=== PATIENT | male | born 1960 | race Caucasian/White ===

== ENCOUNTER → 2023-08-28 15:50 | Outpatient (REF) | payer OTHER, SELFPAY | LOC: RCS 15:50 | PROVIDERS: ATTENDING PHYSICIAN Internal Medicine Cardiovascular Disease; FAMILY PHYSICIAN Family Medicine | DX: I34.0 Nonrheumatic mitral (valve) insufficiency (principal) | CPT/HCPCS: 93306 ==

== ENCOUNTER → 2024-07-10 07:57 | Outpatient (REF) | payer OTHER, SELFPAY | LOC: RCS 07:57 | PROVIDERS: ATTENDING PHYSICIAN Internal Medicine Cardiovascular Disease; FAMILY PHYSICIAN Family Medicine | DX: I34.0 Nonrheumatic mitral (valve) insufficiency (principal) | CPT/HCPCS: 93306 ==

== ENCOUNTER 2024-08-12 10:31 | Day surgery (SDC) | payer OTHER, SELFPAY | END 2024-08-12 12:09 | disposition home or self-care (01) | LOC: CATH 10:31 | PROVIDERS: ATTENDING PHYSICIAN Internal Medicine Cardiovascular Disease; FAMILY PHYSICIAN Family Medicine | DX: I08.3 Combined rheumatic disorders of mitral, aortic and tricuspid valves (principal); Z85.828 Personal history of other malignant neoplasm of skin | CPT/HCPCS: 93312; 93320; 93325 ==

== ENCOUNTER 2024-09-23 06:21 | Day surgery (SDC) | payer OTHER, SELFPAY ==
--- NOTE | 2024-09-21 09:49 | CM ---
Met with and Mrs. Ruiz in [facility]. He states prior to admission he resides with his spouse in a two story home with two steps to enter. He states he has a full flight of steps to get to bedroom/full bathroom. He states he has a powder room
on the first floor. He states prior to admission he was independent with ambulation and adls. He states he does not have any DME in the home. He states he has a prescription plan. His spouse states she will be home to assist in his care if
needed. The discharge plan is to return home with his spouse and a home visit by the Transitional Care Nurse when medically stable.
We reviewed pre-op and post-op routines. We reviewed the shower instructions. He has the soap, written instructions and the Cardiothoracic Surgery Educational Booklet. We also reviewed restrictions including sternal precautions, (if he goes for
SAVR) and driving instructions. We discussed a home visit by the Transitional Care Nurse. He is agreeable to a home visit. The plan is for MVR on Monday, October 16
[2024-09-23] VITALS (15 sets, daily range): BP systolic 109–143; BP diastolic 69–85; BMI 25.3
[2024-09-23] MEDS: LOW STRENGTH ASPIRIN 324 MG PO (07:14)
[2024-09-23] MEDS: NSS 240 ML IV (09:04)
--- NOTE | 2024-09-23 16:09 | ITS.CL.CATH ---
Drying Machine Operator - Catheterization
Cardiac Catheterization
Procedure Report:
LEFT AND RIGHT HEART CATHETERIZATION
Date of Procedure: September 23, 2024
Referring: Zeke Viveros MD
PROCEDURES:
1. Left heart catheterization, coronary angiogram.
2. Right heart catheterization.
3. Moderate sedation
INDICATION: Preoperative for mitral valve surgery
ACCESS: 1. Right radial artery, 6 Vincentian sheath, under ultrasound guidance.
2. Right common femoral vein, 6 Vincentian sheath, under ultrasound guidance. We attempted the right brachial venous access site under ultrasound however we could not successfully advance the wire.
Ultrasound was utilized for vascular access. The radial artery was visualized under ultrasound, and the vessel was patent and pulsatile. An image was stored permanently in the patient's medical record. Under direct ultrasound guidance, a 6 Vincentian
sheath was inserted into the artery using a micropuncture kit through a modified Seldinger technique.
HEMODYNAMICS : (mmHg)
RA (m) : 11
RV (s/d,m) : 33/8, 14
PA (s/d, m) : 29/16, 22
PCWP (m) : 18
PA saturation: 73.0% on room air
AO saturation: 95.7% on room air
RA saturation: 71.8% on room air
Cardiac Output : 4.96 L/min
Cardiac Index : 2.5 L/min/m-2
Systemic vascular resistance: 1178 dsc^(-5)
Pulmonary vascular resistance: 0.81
AO (s/d) : 101/66
LV (s/d) : 106/9
LVEDP : 28
CORONARY FINDINGS
DOMINANCE: Right
LEFT MAIN: The left main artery is a large-caliber vessel which gives rise to the left anterior descending artery and the left circumflex artery. Normal coronary artery
LEFT ANTERIOR DESCENDING: The left into descending artery is a medium to large caliber vessel which gives rise to multiple small caliber diagonal branches as it courses to the anterior interventricular groove and wraps around the apex. Normal
coronary artery.
CIRCUMFLEX: The left circumflex artery is a small caliber vessel which gives rise to 1 major obtuse marginal branch. There is minimal luminal irregularities.
RIGHT CORONARY ARTERY: The right coronary artery is a large-caliber, dominant vessel which is to the right posterior descending artery and the right posterolateral system. Normal coronary artery.
SEDATION: 47 minutes of procedural sedation was utilized. An independent medical language specialist was present to assist with and help manage the patient's level of consciousness and physiologic status.
RADIATION SUMMARY: Fluoro Time (min): 3.3, Dose (mGy): 139.0, DAP (Gy.cm2) : 10.07
Closure Device: 1. Vascular band over right radial artery. Manual pressure was held over the right common femoral venous access site with successful hemostasis.
CONCLUSIONS
1. No obstructive coronary artery disease.
2. Mildly elevated right and left-sided filling pressures with normal cardiac output.
RECOMMENDATIONS
1. Proceed with planned mitral surgical intervention by Dr. Zeke Viveros.
2. Continued optimization of cardiovascular risk factors.
3. Wean radial band per protocol.
Copy to: Zeke Viveros MD
Geraldine Tang MD, [facility], [facility]
== END 2024-09-23 12:05 | disposition home or self-care (01) ==
LOC: CATH 06:21
PROVIDERS: ATTENDING PHYSICIAN Internal Medicine Interventional Cardiology; FAMILY PHYSICIAN Family Medicine; OTHER PHYSICIAN Internal Medicine Cardiovascular Disease
DX: Z01.810 Encounter for preprocedural cardiovascular examination (principal); I08.3 Combined rheumatic disorders of mitral, aortic and tricuspid valves; R03.0 Elevated blood-pressure reading, without diagnosis of hypertension
CPT/HCPCS: 99152; 99153; 93460; C1894; Q9967

== ENCOUNTER → 2024-10-02 10:56 | Outpatient (REF) | payer OTHER, SELFPAY | LOC: RAD 10:56 | PROVIDERS: ATTENDING PHYSICIAN Thoracic Surgery (Cardiothoracic Vascular Surgery); FAMILY PHYSICIAN Family Medicine | DX: I34.0 Nonrheumatic mitral (valve) insufficiency (principal); Z01.810 Encounter for preprocedural cardiovascular examination | CPT/HCPCS: 71275; 74174; Q9967 ==

== ENCOUNTER 2024-10-16 04:57 | Inpatient (IN) | payer OTHER, SELFPAY ==
[2024-09-21 08:23] VITALS: BMI 24.8
[2024-09-21 09:01] LABS: % Basophils 1.1 % (0-2); % Eosinophils 2.6 % (0-6); % Immature Granulocytes 0.2 % (0-0.5); % Lymphocytes 17.2 % (20.5-51.1); % Monocytes 8.4 % (1.7-9.3); % Neutrophils 70.5 % (42.2-75.2); Absolute Basophils 0.1 10^3/uL (0-0.2); Absolute Eosinophils 0.1 10^3/uL (0-0.7); Absolute Lymphocytes 0.8 10^3/uL (1.2-3.4); Absolute Monocytes 0.4 10^3/uL (0.1-0.6); Absolute Neutrophils 3.3 10^3/uL (1.4-6.5); Hematocrit 44.6 % (39.0-52.0); Hemoglobin 15.7 g/dL (13.0-18.0); Mean Corp Hgb Conc. 35.2 g/dL (33.0-37.0); Mean Corpuscular Hgb 30.7 pg (27.0-31.0); Mean Corpuscular Volume 87.3 fL (80.0-94.0); Mean Platelet Volume 9.9 fL (7.4-10.4); Nucleated Red Blood Cells % 0 % (-); Platelet Count 187 10^3/uL (130-400); Red Blood Cell Count 5.11 10^6/uL (4.70-6.10); Red Cell Dist. Width 12.8 % (11.5-14.5); White Blood Cell Count 4.7 10^3/uL (4.8-10.8)
[2024-09-21 09:06] LABS: INR 1.01; PT 13.6 Sec (11.4-14.6)
[2024-09-21 09:08] LABS: APTT 29.7 Sec (23.4-35.0)
[2024-09-21 09:13] LABS: Urine Albumin Negative (Neg - Trace); Urine Bilirubin Negative (Negative); Urine Character Clear (Clear); Urine Color Yellow; Urine Glucose Negative (Negative); Urine Ketone Negative (Negative); Urine Leukocyte Negative (Negative); Urine Nitrite Negative (Negative); Urine Occult Blood Negative (Negative); Urine Specific Gravity 1.015 (<1.030); Urine Urobilinogen Negative (Neg - 1+)
[2024-09-21 09:16] LABS: ALT (SGPT) 15 U/L (0-50); AST (SGOT) 17 U/L (17-59); Albumin 3.8 g/dl (3.5-5.0); Alkaline Phosphatase 55 U/L (38-126); Blood Urea Nitrogen 20 mg/dl (9-20); Calcium 9.4 mg/dl (8.4-10.2); Carbon Dioxide 30 mmol/L (22-30); Chloride 104 mmol/L (98-107); Direct Bilirubin 0.1 mg/dl (0.0-0.4); Estimated Creatinine Clearance 91 ml/min; Glucose 98 mg/dl (70-99); Potassium 5.3 mmol/L (3.5-5.1); Sodium 137 mmol/L (135-145); Total Bilirubin 0.8 mg/dl (0.2-1.3); Total Protein 6.1 g/dl (6.3-8.2); eGFR > 60.00
[2024-09-21 09:40] LABS: Glycohemoglobin (HgbA1c) 5.2 % (4.0-5.6)
--- NOTE | 2024-09-24 15:22 | CM ---
Met with and Mrs. Ruiz in [facility]. He states prior to admission he resides with his spouse in a two story home with two steps to enter. He states he has a full flight of steps to get to bedroom/full bathroom. He states he has a powder room on
the first floor. He states prior to admission he was independent with ambulation and adls. He states he does not have any DME in the home. He states he has a prescription plan. The discharge plan is to return home with his spouse and a home visit
by the Transitional Care Nurse when medically stable.
We reviewed pre-op and post-op routines. We reviewed the shower instructions. He has the soap, written instructions and the Cardiothoracic Surgery Educational Booklet. We also reviewed the restrictions including sternal precautions and driving
restrictions. We discussed a home visit by the Transitional Care Nurse. He is agreeable to home visit. The plan is for Mitral Valve Repair on Wednesday, October 16, 2024.
[2024-10-16] VITALS (15 sets, daily range): BP systolic 80–148; BP diastolic 55–92; BMI 24.6
[2024-10-16] MEDS: MAGNESIUM OXIDE 500 MG PO (05:20)
[2024-10-16] MEDS: PROTONIX 40 MG PO (05:20)
[2024-10-16] MEDS: LOPRESSOR 25 MG PO (05:20)
[2024-10-16] MEDS: BACTROBAN 2% OINTMENT 1 APPLIC NASAL ×2 (05:24→20:00)
--- NOTE | 2024-10-16 05:32 | PTCARENOTE ---
Confirmed 2 CHG baths. CHG cloth bath performed. Admission questions asked. Medications given. Home med list reviewed. Labs drawn and patient clipped in surgical fashion. Awaiting CVOR.
--- NOTE | 2024-10-16 06:11 | W.CVOR.SURPR ---
CVOR Surgeon Immed Pre Op
-
I have examined this patient prior to performance of the scheduled procedure.
The patient's condition is unchanged from the time of the dictated/written History and
Physical and the patient is able to undergo the scheduled procedure.
HP MV repair +/- REJI Clip
[2024-10-16 07:27] LABS: Urine Albumin Negative (Neg - Trace); Urine Bilirubin Negative (Negative); Urine Character Clear (Clear); Urine Color Yellow; Urine Glucose Negative (Negative); Urine Ketone Negative (Negative); Urine Leukocyte Negative (Negative); Urine Nitrite Negative (Negative); Urine Occult Blood 2+ (Negative); Urine Urobilinogen Negative (Neg - 1+); Urine pH 6.5 (5.0-9.0)
[2024-10-16 07:35] LABS: ACT+ - POC 115 Seconds (82-134)
[2024-10-16 08:12] LABS: Urine Mucus Few; Urine Squamous Cell 0-2 /LPF (Few)
[2024-10-16 08:14] LABS: Urine Bacteria Few (Negative); Urine White Cell 0-2 /HPF (0-5)
[2024-10-16 08:37] LABS: ACT+ - POC 780 Seconds (82-134)
[2024-10-16 09:03] LABS: ACT+ - POC 563 Seconds (82-134)
--- NOTE | 2024-10-16 09:22 | CM ---
CM following for DC planning needs.
Pt. in OR today for planned CT Surgery.
Reviewed initial assessment. Pt. resides in a private, 2 [facility] w/ 2 [facility]. Functionally, patient is indep. w/ ADLs, mobility without any assisted device.
Antic. DC plan is for home with CT Transitional Care RN.
CM to follow.
[2024-10-16 09:32] LABS: ACT+ - POC 489 Seconds (82-134)
[2024-10-16 10:00] LABS: ACT+ - POC 533 Seconds (82-134)
[2024-10-16 10:20] LABS: B.E. - POC -0.8 mmol/L; Glucose - POC 205 mg/dl (70-99); HCO3 - POC 24 mmol/L (21-28); Hematocrit - POC 36 % PCV (42-52); Hemodilution- POC Yes; Hemoglobin Calculated - POC 12.4; Ionized Calcium - POC 1.06 mmol/L (1.15-1.33); Lactate - POC 1.46 mmol/L (0.36-0.75); O2 Saturation %Calculated-POC 99.9 % (94-98); PCO2 - POC 40 mmHg (35-48); PO2 - POC 283 mmHg (83-108); POC Comment WARM; Potassium - POC 5.1 mmol/L (3.5-5.1); Sodium - POC 139 mmol/L (136-145); Specimen Type - POC Arterial; pH - POC 7.39 (7.35-7.45)
[2024-10-16 10:25] LABS: ACT+ - POC 137 Seconds (82-134)
[2024-10-16 10:37] LABS: B.E. - POC -4.5 mmol/L; Glucose - POC 73 mg/dl (70-99); HCO3 - POC 21 mmol/L (21-28); Hematocrit - POC 33 % PCV (42-52); Hemodilution- POC Yes; Hemoglobin Calculated - POC 11.3; Ionized Calcium - POC 1.31 mmol/L (1.15-1.33); Lactate - POC 2.48 mmol/L (0.36-0.75); O2 Saturation %Calculated-POC 98.4 % (94-98); PCO2 - POC 39 mmHg (35-48); PO2 - POC 120 mmHg (83-108); POC Comment POST; Potassium - POC 4.1 mmol/L (3.5-5.1); Sodium - POC 142 mmol/L (136-145); Specimen Type - POC Arterial; pH - POC 7.34 (7.35-7.45)
--- NOTE | 2024-10-16 10:49 | W.PN.CT.SURG ---
CT Surgery Operative Note
-
CARDIAC SURGERY OPERATIVE REPORT
Preoperative Diagnosis: Myxomatous mitral valve degeneration, severe insufficiency
Postoperative Diagnosis: Same
Procedure(s) Performed:
1. Right mini thoracotomy with right femoral artery and vein cannulation under ILENE guidance
2. Radical mitral valve repair (2 pairs of CV 4 Macy-Nima cords placed to P2 and P3, 38 mm band annuloplasty)
3. Placement temporary ventricular pacing wires
4. Trans esophageal echocardiography
5. Left atrial appendage exclusion, 35 mm device
Date of Surgery: 10/16/2024
Comorbidities:
1. 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
2. Migraines
3. Skin cancer
4. Hypertension
5. Vertigo
6. Chronic diastolic heart failure with volume overload, cardiac index during surgery 1.2 before valve repair and improved significant to 1.9 after valve repair with without inotropic support
Attending Surgeon: Zeke Viveros MD, MS
Assistants: Zeke Sam PA-C (present and necessary for retraction, suctioning, exposure, suture management, wound closure, etc. under my direction)
Anesthesiology: Donny Santiago MD and Que Katz CRNA
Scrub and Circulating RNs: Josr Castillo RN, Alexa Baez RN
Manager Contact: Aristides Wilkinson CCP
Anesthesia: GETA
EBL: per perfusion records
Products: None
CPB Time: 101 minutes
Aortic Cross Clamp Time: 76 minutes
Indication(s) for Procedures: This is a 64-year-old male with known mitral valve insufficiency has become progressively worse. He has myxomatous mitral valve degeneration with prolapse and flail of the P2 and P3 segment, dilated annulus, and severe
insufficiency. From a symptomatology standpoint he describes no significant shortness of breath on exertion and feels that his clinical status has not really changed over the last year. However given his young age, relatively fit health, repair
ability of his valve in my hands, he met class IIa indication for surgical intervention.
Mitral Valve Description: Thickened both anterior and posterior leaflets, there was a flail segment at the P3 scallop with multiple torn cords and prolapsing of both the P2 and P3 segments. The valve was dilated mostly towards the P2 P3 portion of
the annulus. The severity of his MR was severe.
Implants:
1. 38 mm Stack physio flex band annuloplasty, SN [id number]
2. 2 pairs of CV 4 Macy-Nima cords
3. 35mm left atrial appendage clip, serial #[id number]
Specimen:
1. None
Findings: His left ventricular ejection fraction preoperatively was preserved at 60% with no significant regional wall motion abnormalities. However his cardiac index after insertion of the [place] was approximately 1.2. After surgery his EF remained
the same at 60% with no new regional wall motion abnormalities. His mitral valve was myxomatous with significant prolapsing of P2 into P3 as well as multiple torn cords at the P2 P3 interface. These free cords were then resected and a set of cords
were placed at the posterior medial papillary muscle head. These cords were anchored to the P2 P3 segment and a total of 12 nonpledgeted 2 Ethibond sutures were placed circumferentially from trigone to trigone securing a [address] with
core knots dynamic inflation of his LV yielded a mean pressure of approximately 70 with good coaptation of the valve however there was some prolapsing up of the P2 P3 segment and so the cords were tied in order to promote a more
posterior/ventricular posterior leaflet. His left atrial appendage was clipped with a 35 mm device across the transverse sinus. After coming off cardiopulmonary bypass, there was no residual mitral valve insufficiency, there was normal excursion
of both his anterior and posterior leaflets, the mean gradient across the valve was 1 mmHg, there was no systolic anterior motion of the leaflets. His left atrial appendage was adequately clipped. His cardiac index had improved to 1.8-1.9 without
inotropic support. He was in sinus rhythm and did not require any pacing. He did not require any blood products..
Description of Procedure: The patient was brought to the operating room and placed supine in the table with their right side bumped up and right arm down. Arterial and central access was performed by anesthesiology. The patient was prepped from chin
to toes in the typical sterile fashion. Trans esophageal evaluation of cardiac function and all valvular structures was conducted. Before commencing, a time out was performed by all members of the team. All were in agreement with the procedure and
laterality and I proceeded. A small right groin incision was made to expose the common femoral artery and vein. A total of 50,000 units of heparin was given. A 5-6 cm right lateral thoracotomy was performed over the 4th intercostal space verified by
visualization of the hilum. The common femoral artery and vein were cannulated under transesophageal guidance using open Seldinger technique. The arterial line was verified to have an appropriate bounce and pressure correlating with testing. Once
the ACT was above 400, retrograde autologous priming was done and we commenced cardiopulmonary bypass. Target core temperature was 34�C.
Carbon dioxide was used to flood the field. The course of the phrenic nerve was identified to prevent injury. The pericardium was opened and two stay sutures were placed to facilitate a ``pericardial table.�� The oblique sinus was developed followed
by the inter atrial groove. An antegrade root vent was inserted and secured with a pursestring suture. The pump flow and mean arterial pressure were lowered and an aortic cross clamp was applied to the ascending aorta. A total of 1.2L initial dose
of Antegrade cardioplegia was delivered. We had rapid electro myocardial quiescence at 250-280 cc of cardioplegia. The ventricle was monitored for distension by echocardiogram during this time. The left atrium was incised and enlarged. A left atrial
lift retractor was placed. The mitral valve was inspected. The mitral valve was repaired as described above. At this point with the aid of a 5 mm scope, the left atrial appendage was clipped across the transverse sinus with a 35 mm device. I then
looked in the side the left atrium and verified that the appendage was fully occluded which it was. The left atriotomy was closed with 3-0 prolene in a running fashion leaving a ventricular vent in place to de-air. After filling the heart, the vent
was removed and the prolene was secured with a corknot. Unipolar ventricular pacing wire was placed on the base of the right ventricle. The patient was placed into Trendelenburg position and pump flows were lowered. The clamp was slowly removed
with the root vent turned on. De-airing maneuvers were performed. We started to rewarm with a target of 36.5�C.
As the heart recovered, the mitral valve and ventricular function were assessed under transesophageal echocardiogram. The LV vent and root vents were removed. Once weaning parameters were satisfactory, cardiopulmonary bypass flow was lowered until
we were off cardiopulmonary bypass the mitral valve was inspected again. All surgical sites were inspected for hemostasis and appeared appropriate. The lines were clamped and the arterial was relocated to the venous cannula to give back volume. A
test dose of protamine was delivered and patient was monitored for any adverse reactions followed by complete protamine dosing. The femoral vessels were decannulated and repaired as indicated. The pericardium was approximated with 2-0 ethibond
sutures secured with corknots. One 19F Pantera drain remained in the pleural space and threaded into the pericardium. There was an excellent palpable pulse distal to the STAMP PAD FINISHER cannulation site. Local analgesia was injected to the thoracotomy. The
incision was closed in layers in a running fashion.
All instrument, sponge, and needle counts were confirmed to be correct x 2 at the end of the operation. The patient was transferred to the cardiac intensive care unit in critical but stable condition.
I, Dr. Zeke Viveros, was present, scrubbed for, and performed all critical elements of this procedure.
Zeke Viveros MD, MS
Cardiothoracic Surgeon
[facility]
This dictation was created using the [employer] dictation system. Please excuse any grammatical, typographical, or 'sound alike' errors
[2024-10-16 11:05] LABS: Glucose - Point of Care 65 mg/dl (70-99)
[2024-10-16] MEDS: DEXTROSE 50% SYRINGE 12.5 GRAMS IV (11:05)
[2024-10-16 11:16] LABS: B.E. -2.7 mmol/L; HCO3 23.7 mmol/L (21-28); Ionized Calcium 1.26 mMOL/L (1.15-1.33); O2 Saturation % 98.9 % (94-98); PCO2 46 mmHg (35-48); PO2 104 mmHg (83-108); Potassium 3.7 mMOL/L (3.5-5.1); Sodium 135 mMOL/L (136-145); pH 7.32 (7.35-7.45)
[2024-10-16 11:19] LABS: Glucose - Point of Care 106 mg/dl (70-99)
[2024-10-16 11:19] LABS: Mixed Venous O2 Saturation 82.6 %
[2024-10-16 11:21] LABS: B.E. - POC -1.8 mmol/L; Glucose - POC 100 mg/dl (70-99); HCO3 - POC 23 mmol/L (21-28); Hematocrit - POC 35 % PCV (42-52); Hemodilution- POC No; Hemoglobin Calculated - POC 11.9; Ionized Calcium - POC 1.18 mmol/L (1.15-1.33); Lactate - POC < 0.30 mmol/L (0.36-0.75); O2 Saturation %Calculated-POC 99.9 % (94-98); PCO2 - POC 40 mmHg (35-48); PO2 - POC 282 mmHg (83-108); POC Comment PRE; Potassium - POC 4.2 mmol/L (3.5-5.1); Sodium - POC 141 mmol/L (136-145); Specimen Type - POC Arterial; pH - POC 7.37 (7.35-7.45)
[2024-10-16 11:23] LABS: Hemoglobin 13.7 g/dL (13.0-18.0); Platelet Count 152 10^3/uL (130-400)
[2024-10-16] MEDS: ANCEF 10 IV ×2 (11:28)
[2024-10-16 11:29] LABS: INR 1.34; PT 16.8 Sec (11.4-14.6)
[2024-10-16 11:30] LABS: APTT 29.3 Sec (23.4-35.0); Blood Urea Nitrogen 18 mg/dl (9-20); Estimated Creatinine Clearance 88 ml/min; Glucose 67 mg/dl (70-99)
--- NOTE | 2024-10-16 11:46 | PTCARENOTE ---
Patient received from CVOR at 1100; Sedated and intubated; NSR-SB per tele monitor. VSS; Epicardial V wires present with temporary pacemaker settings VVI 50/10/0.8; +2 DP and radial pulses present; Lungs diminished; ETT size 8 positioned and secured
at 23 cm right lip; Ventilator settings SIMV 12/500/5/5 FiO2 40%; CTx1 to -20 cm wall suction draining very minimal drainage - no air leak, tidaling, or crepitus noted; Hypoactive BS; Mendoza catheter in place draining clear, yellow urine; all
surgical sites, approximated, and SEE SUPERVISOR. Left radial A-line in place, Romy Sherrie floated to 48 cm in RIJ Cordis - all lines zeroed and leveled; #18 PIV present in right hand; precedex, and levo infusing - pt hypoglycemic 12.5g of dextrose given per
protocol.
CO: 4.09
CI: 2.05
SVR: 1075
[2024-10-16 11:59] LABS: Glucose - Point of Care 106 mg/dl (70-99)
[2024-10-16] MEDS: KCL 50 IV (12:14)
[2024-10-16] MEDS: NSS 500 IV (12:14)
[2024-10-16] MEDS: NEURONTIN PO (12:15)
[2024-10-16] MEDS: LR 250 ML IV ×2 (12:22→21:27)
--- NOTE | 2024-10-16 12:36 | W.PN.UPDATE ---
Update Note
Progress Note Update
64 year old male electively admitted 10/16/24 for mitral repair due to myxomatous mitral valve degeneration, severe insufficiency
IV fluids: 1000
U.O.:� 250
Blood:� none
Wires:� 2 V-wires
Drips: Levophed @ 2, Precedex, Insulin
�
NEURO: sedated, pupils +2mm B/L
RESP: #8OT @23cm> 550/40%/14/5. R pleural (0cc on arrival) chest tubes to -20cm suction. Sanguineous drainage in tubing, no air leak, no crepitus
CV: RRR +S1, S2, no S3, no�rub, no murmur. Dermabond t oright mini anterior thoracotomy. RIJ w/[place] locked @ 48cm. PA 32/19; CVP 15; C.O 4.06/CI 2.03
ABD: round, soft, no BS
EXT: no edema, +2/4 DP pulses B/L, right femoral cannulation site w/Dermabond intact, no erythema, right inguinal hernia noted, reducible; left radial A-line intact
: Mendoza with clear yellow urine
�
A/P: POD #0 s/p [facility] radical mitral valve repair (2 pairs of CV 4 [place]-Nima cords placed to P2 and P3, 38 mm band annuloplasty), Left atrial appendage exclusion, 35 mm device
ILENE: EF�60%, MV 5/1 mmHg, no MR
- wean and extubate
- will need instruction regarding antibiotic prophylaxis for dental and invasive procedures
- F/U TTE prior to DC (ordered for 10/19)
- ASA for MV repair
�
--- NOTE | 2024-10-16 12:41 | W.PN.CARDCBS ---
Addendum entered and electronically signed by Rebel Monet MD 10/16/24 13:25:
I saw and examined the patient.
The Vaccine Manager's note was reviewed and I agree with the note.
Comment:
GEN: No distress, intubated
HEENT: supple, anicteric, mmm, ET tube
LUNGS: CTA, no wheezes/rales
CV: Reg, S1/S2, no murmur
ABD: soft, BS+, NT/ND
EXT: No edema
NEURO: Gross non-focal
SKIN: No rash
PLan:
Overall doing well status post mitral valve repair/left A2 appendage clip. EKG with some mild diffuse ST abnormalities consistent with possible pericarditis.
He does have some bradycardia and continue to follow.
Remains on low-dose Levophed.
Wean to extubate.
Original Note:
Today's Communication / Plan
-
continue post op care
Impression / Plan
-
Primary Product Safety Engineer: Dr. Monet
Assessment:
Severe MR with flail cord and prolapse of posterior leaflet at P2 into P3 s/p radical MV repair, REJI clip 10/16/24
Nonobstructive CAD by cath 09/23/24
History of migraines
Post op hypoglycemia, improved
ECHO 07/10/24: EF 61%, stage II diastolic dysfunction, mildly dilated RA, MAC, severe MR with systolic flow reversal in pulmonary veins with MR present, bileaflet mitral valve prolapse with likely torn cord, mild TR
Plan:
-s/p radical MV repair, REJI clip 10/16/24
-intubated. beginning to wean sedation and wake up
-was hypoglycemic upon arrival to floor now improved
-levo just stopped. CI 2.05
-SB on tele. possible pericarditis by post op EKG, follow
-hgb 13.7. continue asa 81mg daily
-continue post op care
-d/w nursing, CT surgery
Progress Note - Product Safety Engineer
Subjective
Date of Service: October 16, 2024
intubated. beginning to wake up
Objective
Labs:
10/16/24 11:01
Labs
Hgb 13.7 g/dL (13.0-18.0) 10/16/24 11:01
Hct 38.0 % (39.0-52.0) L 10/16/24 11:01
Plt Count 152 10^3/uL (130-400) 10/16/24 11:01
PT 16.8 Sec (11.4-14.6) H 10/16/24 11:01
INR 1.34 10/16/24 11:01
APTT 29.3 Sec (23.4-35.0) 10/16/24 11:01
Sodium 137 mmol/L (135-145) 09/21/24 08:43
Potassium 5.3 mmol/L (3.5-5.1) H 09/21/24 08:43
BUN 18 mg/dl (9-20) 10/16/24 11:01
Creatinine 0.9 mg/dL (0.7-1.3) 10/16/24 11:01
Glucose 67 mg/dl (70-99) L 10/16/24 11:01
Vital Signs and I&O:
Vital Signs
Temp Pulse Resp BP Pulse Ox
96.7 F L 55 12 98
10/16/24 12:00 10/16/24 12:00 10/16/24 12:00 10/16/24 12:00 10/16/24 12:00
Vital Signs
Temp Pulse Resp BP Pulse Ox
96.7 F L 55 12 88/62 98
10/16/24 12:00 10/16/24 12:00 10/16/24 12:00 10/16/24 12:00 10/16/24 12:00
Intake & Output
10/14/24 10/15/24 10/16/24 10/17/24
07:59 07:59 07:59 07:59
Intake Total 57.3 / 57.3
Output Total 110 / 110
Balance -52.7 / -52.7
Physical Exam
Physical Exam
GEN: No distress, intubated, sedated. on priti hugger
HEENT: supple, mmm
LUNGS: CTA B/L, no wheezes
CV: Reg and silvestre, S1/S2, no murmur
EXT: No cyanosis, clubbing, edema
NEURO: Gross non-focal
SKIN: Warm, pink, dry. No rash. CTs in place.
[2024-10-16 12:55] LABS: Glucose - Point of Care 143 mg/dl (70-99)
--- NOTE | 2024-10-16 13:46 | CON.INTV ---
Consultation
Consultation Request
Date/Time Consultation Requested: 10/16/2024-2 PM
Date/Time Consultation Performed: 10/16/2024- PM
Requesting Provider: cardiothoracic surgery
Performing Provider: Dr. Molina
Reason for Consultation: postoperative ventilator/critical care management
Medical History
-
Chief Complaint: mitral valve disease
History of Present Illness:
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
into P3 who underwent radical mitral valve repair-machine set up consulted for postoperative ventilator/critical care management 10/16/2024.Patient is sedated on the ventilator and review of systems was unobtainable. Operative records were reviewed.
Pressor requirements were reviewed as well as chest tube output and ventilator settings.
Past Medical History
Past Medical History: None ( Hypertension. Vertigo. Skin cancer. Migraines. Severe mitral valve insufficiency/myxomatous degeneration, type II pathology status post mitral valve repair 10/16/2024. Chronic diastolic heart failure. Hernia repair.
[place] teeth.)
Social History
Tobacco: Non-smoker
Alcohol: None
Drug: None
Personal:
Living: With Family
Occupational Exposures: No known asbestos exposure
Environmental Exposures: no known tuberculosis exposure
Family History
Family History: Reviewed & Not Pertinent
Allergies / Home Medications
Allergies
Allergy/AdvReac Type Severity Reaction Status Date / Time
No Known Allergies Allergy Verified 09/23/24 07:30
Home Medications
�Medication �Instructions �Recorded �Confirmed �Last Taken �Type
azhmyhz-wofvgnldzjfya-pqlniatj 250 1 - 2 tab PO PRN PRN Migraine, 09/18/24 10/16/24 Unknown History
mg-250 mg-65 mg tablet (Excedrin Headache
Migraine)
multivitamin 1 tab PO DAILY 09/18/24 10/16/24 10/09/24 18:00 History
cetirizine 10 mg tablet (Zyrtec) 10 mg PO DAILY 09/23/24 10/16/24 09/25/24 History
Review of Systems
-
Unable to Obtain full review of systems at this time due to: Other ( per HPI)
Vitals / Labs / Diagnostic Testing
Vital Signs
Temp Pulse Resp BP Pulse Ox
97.8 F 57 12 93/67 98
10/16/24 13:00 10/16/24 12:59 10/16/24 13:00 10/16/24 13:00 10/16/24 13:00
Lab Data
10/16/24 11:01
Laboratory Results
10/16/24
11:01
PT 16.8 H
INR 1.34
APTT 29.3
pH 7.32 L
pCO2 46
pO2 104
HCO3 23.7
O2 Delivery Level
Diagnostic Testing:
Physical Exam
-
Exam:
well-nourished and well-developed in no apparent distress
HEENT-atraumatic, normocephalic, oral tracheal intubation
Heart-regular rate and rhythm-no murmurs, rubs or gallops
Chest-clear to auscultation, no wheezes, crackles
Abdomen soft nondistended
Extremities-no cyanosis, clubbing, edema and good peripheral pulses
Integument-intact, no rashes, lesions or ecchymosis
Neurologically not alert, not oriented, not moving any of his extremities sedated on a ventilator
Assessment
-
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
into P3 who underwent radical mitral valve repair-machine set up consulted for postoperative ventilator/critical care management 10/16/2024.
Severe mitral valve insufficiency/myxomatous degeneration, type II pathology with flail cord and prolapse of posterior leaflet at P2-P3
Status post radical mitral valve repair, right minithoracotomy-Dr. Viveros-10/16/2024
Conditions present prior to admission:
Hypertension.
Vertigo.
Skin cancer.
Migraines.
Severe mitral valve insufficiency/myxomatous degeneration, type II pathology status post mitral valve repair 10/16/2024.
Chronic diastolic heart failure.
Hernia repair. [place] teeth.
Plan
Ventilator settings reviewed
FiO2 will be weaned
Minute ventilation will be adjusted
Arterial blood gases will be monitored
Spontaneous breathing trial will be attempted with hopeful extubation after anesthesia/sedation wear off
Pulmonary artery catheter parameters will be followed
Pressors/antihypertensive/inotropes/diuretics will be provided as needed
Monitor chest tube output
Monitor hemoglobin
Monitor platelet count and coags
Transfuse blood product if needed
CT surgery following chest tubes
Monitor blood sugar
Insulin drip per protocol
Aspiration precautions
VAP prevention protocol
DVT prophylaxis
Early nutrition
Early mobilization
Critical care statement: A total of 50 minutes of critical care time was provided for this patient today. This includes management of ventilator, spontaneous breathing trial, arterial blood gases, pressors, of unstable vital signs, evaluation of the
patient at bedside, reviewing the patient's pertinent medical records including radiographs, microbiology, laboratory evaluations, and discussion with primary team and critical care nursing.
Diagnostic data:
Chest x-ray 10/16/2024-lungs are clear, postoperative changes
CT chest abdomen and pelvis 10/02/24-mildly calcified mitral valve, mild prostate enlargement, right sided hydrocele
Cardiac catheterization 09/23/24-no obstructive coronary artery disease, mildly elevated right and left-sided
Transesophageal echocardiogram 10/16/2024-EF 55%, no regional wall motion abnormalities, stage II diastolic dysfunction, severe mitral regurgitation
Data Reviewed
-
EKG: Report reviewed by me
Radiology: Report reviewed by me
CT Scan: Report reviewed by me
Medical Tests (Nuc Med, Echo etc): Report reviewed by me
Labs: Labs reviewed by me
Old Records: Requested
Critical Care Time (in minutes): 50
[2024-10-16 13:55] LABS: Glucose - Point of Care 163 mg/dl (70-99)
[2024-10-16 14:21] LABS: B.E. -3.3 mmol/L; HCO3 22.1 mmol/L (21-28); O2 Saturation % 99.7 % (94-98); PCO2 40 mmHg (35-48); PO2 176 mmHg (83-108); pH 7.35 (7.35-7.45)
[2024-10-16] MEDS: TYLENOL PO (14:29)
--- NOTE | 2024-10-16 14:30 | PTCARENOTE ---
pt placed on CPAP @ 1345, ABG results reviewed w/ CTPA, pt extubated @1430 to 6L w/o incident, pt able to state name and and able to follow all commands
--- NOTE | 2024-10-16 14:30 | RESPNOTE ---
patient extubated to a 6L nasal cannula
[2024-10-16] MEDS: DILAUDID 0.25 MG IV (14:46)
[2024-10-16 14:56] LABS: Glucose - Point of Care 156 mg/dl (70-99)
[2024-10-16 15:02] LABS: Hematocrit 38.1 % (39.0-52.0); Hemoglobin 13.6 g/dL (13.0-18.0); Platelet Count 166 10^3/uL (130-400)
[2024-10-16 15:23] LABS: B.E. - POC 2.4 mmol/L; Glucose - POC 138 mg/dl (70-99); HCO3 - POC 29 mmol/L (21-28); Hematocrit - POC 31 % PCV (42-52); Hemodilution- POC Yes; Hemoglobin Calculated - POC 10.6; Ionized Calcium - POC 1.04 mmol/L (1.15-1.33); Lactate - POC < 0.30 mmol/L (0.36-0.75); PCO2 - POC 53 mmHg (35-48); PO2 - POC 423 mmHg (83-108); POC Comment CPB; Potassium - POC 5.7 mmol/L (3.5-5.1); Sodium - POC 136 mmol/L (136-145); Specimen Type - POC Arterial; pH - POC 7.34 (7.35-7.45)
[2024-10-16 15:32] LABS: B.E. - POC 1.3 mmol/L; Glucose - POC 162 mg/dl (70-99); HCO3 - POC 26 mmol/L (21-28); Hematocrit - POC 33 % PCV (42-52); Hemodilution- POC Yes; Hemoglobin Calculated - POC 11.1; Ionized Calcium - POC 1.03 mmol/L (1.15-1.33); Lactate - POC < 0.30 mmol/L (0.36-0.75); PCO2 - POC 40 mmHg (35-48); PO2 - POC 421 mmHg (83-108); POC Comment CPB; Potassium - POC 6.7 mmol/L (3.5-5.1); Sodium - POC 136 mmol/L (136-145); Specimen Type - POC Arterial; pH - POC 7.42 (7.35-7.45)
[2024-10-16 15:57] LABS: Glucose - Point of Care 114 mg/dl (70-99)
[2024-10-16] MEDS: LOW STRENGTH ASPIRIN 81 MG PO (16:07)
[2024-10-16] MEDS: ROXICODONE 5 MG PO ×2 (16:14→23:22)
[2024-10-16] MEDS: NEURONTIN 100 MG PO ×2 (16:15→22:15)
[2024-10-16] MEDS: DILAUDID 0.5 MG IV (16:59)
[2024-10-16] MEDS: LIDOCAINE 4% PATCH 1 PATCH TOPICAL (16:59)
[2024-10-16 17:05] LABS: Glucose - Point of Care 94 mg/dl (70-99)
[2024-10-16] MEDS: PACERONE 200 MG PO (17:08)
[2024-10-16] MEDS: FLEXERIL 5 MG PO (17:19)
[2024-10-16 18:00] LABS: Glucose - Point of Care 100 mg/dl (70-99)
[2024-10-16] MEDS: ANCEF 5 IV (18:03)
[2024-10-16] MEDS: OFIRMEV 100 IV (18:41)
[2024-10-16] MEDS: SENOKOT-S 1 TABLET PO (20:00)
[2024-10-16 20:11] LABS: Glucose - Point of Care 100 mg/dl (70-99)
--- NOTE | 2024-10-16 20:20 | PTCARENOTE ---
Patient received from RN @ 1900. Patient lying in bed w/ call dyer in reach. AOx3. Sinus bradycardia BP 108/58 HR 57. Heart sounds audible. V-wires, VVI 50/10/0.8. Radial and pedal pulses present. No edema noted. Lungs clear but diminished
bilaterally. IS 1250. POX 98% 2L NC. Right pleural chest tube set to -20 suction draining serosanguineous fluid WNL. No crepitus, tidaling, or air leaks noted. Mendoza draining clear yellow urine WNL. Bowel sounds hypoactive. Right lateral
chest incision dry approximated and CAREER TRANSITION SPECIALIST. Right upper chest puncture approximated and LILLIAN. Right groin incision well approximated and CAREER TRANSITION SPECIALIST. RIJ cordis w/ swan @50 CI 2.09 PAP / CVP 11. Left radial A-line. All lines leveled and zeroed. Left
PIV patent and intact. On Levo and Insulin titrating per protocol see Worklist for details. Patient states pain is 1/10.
--- NOTE | 2024-10-16 21:32 | PTCARENOTE ---
[address] DANIEL Marques.
[2024-10-16] MEDS: TYLENOL 1000 MG PO (22:15)
[2024-10-16] MEDS: PACERONE PO (22:16)
[2024-10-16 23:17] LABS: Glucose - Point of Care 85 mg/dl (70-99)
[2024-10-16 23:41] LABS: Glucose - Point of Care 78 mg/dl (70-99)
[2024-10-17] VITALS (23 sets, daily range): BP systolic 92–125; BP diastolic 56–78; PULSE 65; O2SAT 98; BMI 25.2
[2024-10-17 00:17] LABS: Glucose - Point of Care 89 mg/dl (70-99)
--- NOTE | 2024-10-17 00:27 | PTCARENOTE ---
Patient reassessed. Patient states pain 5/10. VSS NSR BP 123/59 HR 61 POX 100% 2L NC.
[2024-10-17 01:17] LABS: Glucose - Point of Care 102 mg/dl (70-99)
[2024-10-17] MEDS: FLEXERIL 5 MG PO ×3 (01:25→23:12)
[2024-10-17] MEDS: ANCEF 5 IV ×2 (01:26→10:10)
[2024-10-17 02:10] LABS: Glucose - Point of Care 99 mg/dl (70-99)
[2024-10-17 03:17] LABS: Glucose - Point of Care 96 mg/dl (70-99)
[2024-10-17 03:41] LABS: Hematocrit 36.6 % (39.0-52.0); Mean Corp Hgb Conc. 35.5 g/dL (33.0-37.0); Mean Corpuscular Hgb 31.1 pg (27.0-31.0); Mean Corpuscular Volume 87.6 fL (80.0-94.0); Mean Platelet Volume 10.6 fL (7.4-10.4); Platelet Count 145 10^3/uL (130-400); Red Blood Cell Count 4.18 10^6/uL (4.70-6.10); Red Cell Dist. Width 13.4 % (11.5-14.5); White Blood Cell Count 12.5 10^3/uL (4.8-10.8)
[2024-10-17 04:04] LABS: Blood Urea Nitrogen 24 mg/dl (9-20); Calcium 8.3 mg/dl (8.4-10.2); Carbon Dioxide 22 mmol/L (22-30); Chloride 108 mmol/L (98-107); Estimated Creatinine Clearance 88 ml/min; Glucose 101 mg/dl (70-99); Magnesium 2.3 mg/dl (1.6-2.3); Potassium 4.9 mmol/L (3.5-5.1); Sodium 137 mmol/L (135-145); eGFR > 60.00
[2024-10-17 05:04] LABS: Glucose - Point of Care 88 mg/dl (70-99)
--- NOTE | 2024-10-17 06:01 | PTCARENOTE ---
Patient assessment unchanged. EKG obtained. Labs drawn and CT DANIEL Marques notified. Removed A-line, swan, and Mendoza @ [address] DANIEL Marques. Due to void @ 1200.
[2024-10-17] MEDS: TYLENOL 1000 MG PO ×3 (06:47→23:11)
[2024-10-17] MEDS: ROXICODONE 5 MG PO ×4 (06:48→20:33)
[2024-10-17 07:08] LABS: Glucose - Point of Care 94 mg/dl (70-99)
--- NOTE | 2024-10-17 07:09 | PTCARENOTE ---
Patient OOB to chair. CT dump noted and CT PA Jerald notified. Patient asymptomatic and BP stable. See Worklist for details.
--- NOTE | 2024-10-17 07:11 | W.PN.CT ---
Addendum entered and electronically signed by Blanco Lindsey MD 10/17/24 09:26:
I saw and examined the patient.
The PA's note was reviewed and I agree with the note.
Comment:
POD#1 s/p MVRp, ELAA
No major overnight events
De-line
D/C malone
OOB/IS/ambulate later
Maintain CTs
CXR - clear
Original Note:
Today's Communication / Plan
-
-pod #1
-no issues overnight
-CI 2.8, CO 5.6. Drips: Insulin
-CT output: R pleur 215/270 in 12/24 hrs
-delined
-d/c insulin
-d/c Malone
-current meds (ASA, Amio, Lopressor, Protonix)
-encourage IS, OOB
Assessment / Plan
-
- s/p Right mini thoracotomy with Radical mitral valve repair; Left atrial appendage exclusion [35 mm device] by Dr. Viveros on 10/16/24, pod #1
- Intraop ILENE: LVEF preop 60% with no significant wma. However, his cardiac index after insertion of the [place] was approximately 1.2. After surgery, his EF remained the same at 60% with no new regional wma. There was no residual mitral valve
insufficiency, there was normal excursion of both his anterior and posterior leaflets, the mean gradient across the valve was 1 mmHg, there was no systolic anterior motion of the leaflets. His left atrial appendage was adequately clipped. His
cardiac index had improved to 1.8-1.9 without inotropic support.
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
- Migraines
- Skin cancer
- Hypertension
- Vertigo
- Chronic diastolic heart failure with volume overload, cardiac index during surgery 1.2 before valve repair and improved significant to 1.9 after valve repair without inotropic support
- Acute postop blood loss anemia - stable, no transfusion
- Acute postop atelectasis
- Acute postop hypovolemia with subsequent hypervolemia
- Suspected acute postop pericarditis /+rub
Discussed patient care with: Nursing and Care Team
Subjective
-
Date of Service: October 17, 2024
Objective Data
-
PT 16.8 Sec (11.4-14.6) H 10/16/24 11:01
INR 1.34 10/16/24 11:01
APTT 29.3 Sec (23.4-35.0) 10/16/24 11:01
Vital Signs
Vital Signs
Temp Pulse Resp BP Pulse Ox
99.6 F 61 13 92/67 99
10/17/24 00:00 10/17/24 00:00 10/17/24 00:00 10/17/24 00:00 10/17/24 00:00
CT Intake/Output/Weight
10/16/24 10/16/24 10/17/24
06:59 18:59 06:59
Intake Total 654.0 / 856.8 202.8 / 856.8
Output Total 490 / 695 205 / 695
Balance 164.0 / 161.8 -2.2 / 161.8
SaO2: 99
Physical Exam
-
General: Awake and AOx3
Cardiovascular: Regular rate & rhythm, No Murmurs and No Rub
Respiratory: Decreased Breath Sounds
Sternum: Stable
Incision: Clean, Dry and Intact
Extremities: No Edema
Abdomen: soft, nontender, nondistended, + decreased bowel sounds
Data Reviewed
-
Lab Results: Results Reviewed
Medications: Active Meds Reviewed
Chest X-Ray: Report Reviewed and Image Reviewed
ECG: Report Reviewed and Image Reviewed
--- NOTE | 2024-10-17 08:16 | PTCARENOTE ---
Patient received from night worker resting oob in chair, AAO x 3, states pain controlled after recent medication administration (see MAR). NSR via cm, SaO2 @ 92% on RA. Denies SOB. All procedural sites stable. Epicardial V-wire set to back up rate
50bpm, no spikes noted. R lat chest tube to -20cm suction, no air leak or crepitus. Mendoza catheter recently d/c'd, denies urge to void. Patient and at bedside, updated to plan of care for the day, in agreement. See work list for full assessment
and interventions performed.
--- NOTE | 2024-10-17 08:30 | W.PN.INTV ---
Today's Communication / Plan
Recommendations
Up OOB as tolerated
Goal BG 110�140
Encouraged incentive spirometer use
Goal SpO2 >90-9%
Pain control
Management of R�IJ cordis + chest tube to CT surgery team
Patient to be transferred to CVICU�telemetry status today. Once transferred, we will sign off at that time. Please reconsult if there are any additional questions/concerns, or if patient's respiratory status deteriorates.
Assessment
-
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
into P3 who underwent radical mitral valve repair-yarn examiner skeins consulted for postoperative ventilator/critical care management 10/16/2024.
Severe mitral valve insufficiency/myxomatous degeneration, type II pathology with flail cord and prolapse of posterior leaflet at P2 into P3
Status post radical mitral valve repair, right minithoracotomy, and left atrial appendage exclusion with 35mm device - Dr. Viveros-10/16/2024
Conditions present prior to admission:
Hypertension.
Vertigo.
Skin cancer.
Migraines.
Severe mitral valve insufficiency/myxomatous degeneration, type II pathology status post mitral valve repair 10/16/2024.
Chronic diastolic heart failure.
Hernia repair. [place] teeth.
Plan
Patient successfully extubated to nasal cannula on 10/16/2024, and is currently on room air breathing comfortably, saturating 99%
Maintain SpO2 >90-94%
Up OOB as tolerated
Pain control
Encourage incentive parameter use at least 10 times per hour for at least 4 hours/day
Removal of R�IJ cordis per CT surgery team
Monitor chest tube output (mediastinal/pleural chest tube x1)
Monitor hemoglobin
Monitor platelet count and coags
Transfuse blood product if needed
CT surgery managing chest tube
Monitor blood sugar with goal BG 110-140 mg/dL
No longer on insulin drip
Recommend ISS to keep BG at goal as above
Aspiration precautions
DVT prophylaxis
Early nutrition
Early mobilization
Patient to be transferred to CVICU�telemetry status today. Once transferred, we will sign off at that time. Thank you for allowing us to be involved in the care of this patient. Please reconsult if there are any additional questions/concerns, or
if patient's respiratory status deteriorates.
Diagnostic data:
Chest x-ray 10/16/2024-lungs are clear, postoperative changes
CT chest abdomen and pelvis 10/02/24-mildly calcified mitral valve, mild prostate enlargement, right sided hydrocele
Cardiac catheterization 09/23/24-no obstructive coronary artery disease, mildly elevated right and left-sided
Transesophageal echocardiogram 10/16/2024-EF 55%, no regional wall motion abnormalities, stage II diastolic dysfunction, severe mitral regurgitation
Total time spent today was 58 minutes for this encounter. Time includes reviewing laboratory test/imaging results, reviewing pertinent medical records, obtaining and reviewing medical history, performing an appropriate exam, ordering medications,
tests and procedures. Time also includes documentation of this encounter, coordinating patient care and communicating with other healthcare professionals. Total time does not include separately billed tests performed on this date of service.
Subjective Dataa
Subjective Data
Date of Service:
Date of Service: October 17, 2024
Chief Complaint: Structurer Follow Up
Subjective:
Patient seen and evaluated today at bedside. Sitting in chair no acute distress, patient's , Krissy, at bedside. All questions were answered. He is pulling 750 cc from his status prominent and has to stop due to chest pain.
Mediastinal/pleural chest tube in place. Heart rate 71, BP 110/75 and saturating 99% on room air. He is breathing comfortably, denies BROCK, nausea, vomiting, fevers or chills.
Review of Systems
General: Other (Negative unless mentioned above)
Objective Data
Data Reviewed
Vital Signs / I&O / Oxygen:
Vital Signs
Temp Pulse Resp BP Pulse Ox
98.6 F 69 20 110/74 92
10/17/24 08:00 10/17/24 09:00 10/17/24 09:00 10/17/24 09:00 10/17/24 08:08
Intake and Output
10/16/24 10/17/24 10/18/24
06:59 06:59 06:59
Intake Total 1002.0 / 1012.4 272.4 / 272.4
Output Total 1135 / 1145
Balance -133.0 / -132.6 242.4 / 242.4
SaO2 [SIMV] 98
SaO2 92
Nasal Cannula flow liters per 2
minute
Physical Exam
General: Respiratory Distress (negative), Comfortable, Chills (negative) and Sweats (negative)
HEENT: Normocephalic and Anicteric
Cardiovascular: S1-S2 and Peripheral Edema (negative)
Respiratory: Wheeze (negative), Crackles (negative), Rhonchi (negative), Non-Labored Respirations and Stridor (negative)
GI: Soft, Non Distended, Non Tender and Normal Bowel Sounds
Neurology: AO x 3 and Tremors (negative)
Skin: Warm, Dry, Cyanosis (negative) and Jaundice (negative)
Labs/Micro/Reports
Lab Data
10/17/24 03:23
10/17/24 03:23
Laboratory Results
10/16/24 10/16/24
11:01 14:11
PT 16.8 H
INR 1.34
APTT 29.3
pH 7.32 L 7.35
pCO2 46 40
pO2 104 176 H
HCO3 23.7 22.1
O2 Delivery Level
--- NOTE | 2024-10-17 08:49 | W.PN.ANS.POP ---
Anesthesia Post Operative
- Anesthesia Post Op Note
Vital Signs Stable-See Nursing Note: Yes
Airway Patent: Yes
Adequate Pain Control: Yes
Change in Mental Status: No
Current Postoperative Nausea & Vomiting: No
Anesthesia Complications: No
General Anesthetic Recall: No
Unplanned Admission: No
Post Op Hydration Adequate: Yes
[2024-10-17] MEDS: BACTROBAN 2% OINTMENT 1 APPLIC NASAL ×2 (08:53→20:58)
[2024-10-17] MEDS: MAGNESIUM OXIDE 500 MG PO ×2 (08:53→20:59)
[2024-10-17] MEDS: LOPRESSOR 12.5 MG PO ×2 (08:53→20:59)
[2024-10-17] MEDS: PACERONE 200 MG PO ×3 (08:53→23:11)
[2024-10-17] MEDS: NEURONTIN 100 MG PO ×3 (08:53→23:11)
[2024-10-17] MEDS: PROTONIX 40 MG PO (08:53)
[2024-10-17] MEDS: LOW STRENGTH ASPIRIN 81 MG PO (08:54)
[2024-10-17] MEDS: SENOKOT-S 1 TABLET PO ×2 (08:54→20:59)
[2024-10-17 09:03] LABS: Glucose - Point of Care 80 mg/dl (70-99)
[2024-10-17] MEDS: NSS IV (10:02)
[2024-10-17 11:02] LABS: Glucose - Point of Care 111 mg/dl (70-99)
--- NOTE | 2024-10-17 12:02 | PTCARENOTE ---
VS obtained, assessment stable. Patient assisted to bathroom, voided independently. Lunch ordered. Family at bedside.
--- NOTE | 2024-10-17 12:05 | W.PN.CARDCBS ---
Today's Communication / Plan
-
Doing well postoperatively, continue current postoperative care
Impression / Plan
-
Primary Barrel Lathe Operator Inside: Dr. Monet
Assessment:
Severe MR with flail cord and prolapse of posterior leaflet at P2 into P3 s/p radical MV repair, REJI clip 10/16/24
Nonobstructive CAD by cath 09/23/24
History of migraines
Post op hypoglycemia, improved
ECHO 07/10/24: EF 61%, stage II diastolic dysfunction, mildly dilated RA, MAC, severe MR with systolic flow reversal in pulmonary veins with MR present, bileaflet mitral valve prolapse with likely torn cord, mild TR
Plan:
s/p radical MV repair, REJI clip 10/16/24
Hemodynamically stable and in sinus rhythm, continue current postoperative care
Progress Note - Barrel Lathe Operator Inside
Subjective
Date of Service: October 17, 2024
Sitting in chair watching TV, family visiting him in the room. He tells me he feels well. He does have some incisional chest discomfort with deep inspiration.
Objective
Labs:
10/17/24 03:23
10/17/24 03:23
Labs
Hgb 13.0 g/dL (13.0-18.0) 10/17/24 03:23
Hct 36.6 % (39.0-52.0) L 10/17/24 03:23
Plt Count 145 10^3/uL (130-400) 10/17/24 03:23
PT 16.8 Sec (11.4-14.6) H 10/16/24 11:01
INR 1.34 10/16/24 11:01
APTT 29.3 Sec (23.4-35.0) 10/16/24 11:01
Sodium 137 mmol/L (135-145) 10/17/24 03:23
Potassium 4.9 mmol/L (3.5-5.1) 10/17/24 03:23
BUN 24 mg/dl (9-20) H 10/17/24 03:23
Creatinine 0.9 mg/dL (0.7-1.3) 10/17/24 03:23
Glucose 101 mg/dl (70-99) H 10/17/24 03:23
Vital Signs and I&O:
Vital Signs
Temp Pulse Resp BP Pulse Ox
98.6 F 65 17 117/77 99
10/17/24 12:00 10/17/24 12:00 10/17/24 12:00 10/17/24 11:55 10/17/24 12:00
Vital Signs
Temp Pulse Resp BP Pulse Ox
98.6 F 65 17 117/77 99
10/17/24 12:00 10/17/24 12:00 10/17/24 12:00 10/17/24 11:55 10/17/24 12:00
Intake & Output
10/15/24 10/16/24 10/17/24 10/18/24
06:59 06:59 06:59 06:59
Intake Total 1002.0 / 1012.4 533.6 / 533.6
Output Total 1135 / 1145 50 / 50
Balance -133.0 / -132.6 483.6 / 483.6
Physical Exam
Physical Exam
Well-appearing, no acute distress, sitting in chair watching television, appears comfortable
Regular rate and rhythm with normal S1 and S2, no S3 no S4 is a grade 1/6 apical holosystolic murmur no rubs.
Lungs clear to auscultation bilaterally without wheezes rales or rhonchi
Extremities no clubbing or cyanosis, there is trace pretibial edema bilaterally
[2024-10-17] MEDS: FERRLECIT 110 MG IV (13:56)
--- NOTE | 2024-10-17 16:19 | PTCARENOTE ---
VS obtained, assessment stable. Patient remains oob in chair. Voided. at bedside.
--- NOTE | 2024-10-17 21:00 | PTCARENOTE ---
Report received from GUANAKO Fowler. Walking rounds done. Pt sitting in chair. Awake, alert, oriented x 4. VS done. Assisted to BR to void clear, yellow urine and attempt BM. No BM yet passed flatus. Pt helped back to bed. C/O R lateral CP. Roxicodone
5 mg po given for moderate CP. Assessment done. BBS present. Decreased bibasilarly and anteriorly. Room air sat 97-98%. R lateral CT to -20 cm suction. SSG drainage. See wound assessments flowsheet. Audible heart tones. Pt in SR. Normotensive at
121/77. V wire present and insulated to chest. Temporary PPM at bedside. DP pulses weak, Radial pulses normal. Trace edema to BLE. Belly soft, nontender. Normoactive bs x 4. Pt given CHG bath. remaining at bedside overnight. Ongoing plan of
care.
--- NOTE | 2024-10-17 23:31 | PTCARENOTE ---
Evening meds given. Flexeril 5 mg po given for muscle spasm to R lateral chest. VS done. Remains in SR. Sats on room air are 94%. at bedside.
[2024-10-18] VITALS (11 sets, daily range): BP systolic 106–130; BP diastolic 69–78; PULSE 66–68; BMI 25.2
--- NOTE | 2024-10-18 04:00 | PTCARENOTE ---
VS done. Labs drawn and sent. Pt sleeping, arouses to voice briefly, then falls back to sleep. Remains in SR. Sats on Room Air are 93%. remains at bedside.
[2024-10-18 04:40] LABS: Blood Urea Nitrogen 32 mg/dl (9-20); Calcium 8.6 mg/dl (8.4-10.2); Carbon Dioxide 29 mmol/L (22-30); Chloride 104 mmol/L (98-107); Estimated Creatinine Clearance 79 ml/min; Glucose 128 mg/dl (70-99); Magnesium 2.3 mg/dl (1.6-2.3); Sodium 135 mmol/L (135-145); eGFR > 60.00
[2024-10-18 05:00] LABS: Hematocrit 36.6 % (39.0-52.0); Hemoglobin 12.6 g/dL (13.0-18.0); Mean Corp Hgb Conc. 34.4 g/dL (33.0-37.0); Mean Corpuscular Hgb 31.1 pg (27.0-31.0); Mean Corpuscular Volume 90.4 fL (80.0-94.0); Mean Platelet Volume 10.5 fL (7.4-10.4); Platelet Count 130 10^3/uL (130-400); Red Blood Cell Count 4.05 10^6/uL (4.70-6.10); Red Cell Dist. Width 13.6 % (11.5-14.5)
--- NOTE | 2024-10-18 05:26 | W.PN.CT ---
Addendum entered and electronically signed by Blanco Lindsey MD 10/18/24 09:23:
I saw and examined the patient.
The PA's note was reviewed and I agree with the note.
Comment:
POD#2 s/p mini-MVRp/ELAA
No major events. Doing well.
Diuresis
D/C CTs
OOB/IS/ambulate
Original Note:
Today's Communication / Plan
-
-pod #2
-no issues overnight
-CT output: 40/150 in 12/24 hrs, discontinue today
-continue current care
-current meds (ASA, Amio, Lopressor, Protonix)
-encourage IS, OOB
Assessment / Plan
-
- s/p Right mini thoracotomy with Radical mitral valve repair; Left atrial appendage exclusion [35 mm device] by Dr. Viveros on 10/16/24, pod #2
- Intraop ILENE: LVEF preop 60% with no significant wma. However, his cardiac index after insertion of the [place] was approximately 1.2. After surgery, his EF remained the same at 60% with no new regional wma. There was no residual mitral valve
insufficiency, there was normal excursion of both his anterior and posterior leaflets, the mean gradient across the valve was 1 mmHg, there was no systolic anterior motion of the leaflets. His left atrial appendage was adequately clipped. His
cardiac index had improved to 1.8-1.9 without inotropic support.
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
- Migraines
- Skin cancer
- Hypertension
- Vertigo
- Chronic diastolic heart failure with volume overload, cardiac index during surgery 1.2 before valve repair and improved significant to 1.9 after valve repair without inotropic support
- Acute postop blood loss anemia - stable, no transfusion
- Acute postop atelectasis
- Acute postop hypovolemia with subsequent hypervolemia
- Suspected acute postop pericarditis /+rub
Subjective
Procedure
s/p Right mini thoracotomy with Radical mitral valve repair; Left atrial appendage exclusion [35 mm device] by Dr. Viveros on 10/16/24
-
Date of Service: October 18, 2024
Objective Data
-
Lab Results
10/18/24 03:58
10/18/24 03:58
PT 16.8 Sec (11.4-14.6) H 10/16/24 11:01
INR 1.34 10/16/24 11:01
APTT 29.3 Sec (23.4-35.0) 10/16/24 11:01
Vital Signs
Vital Signs
Temp Pulse Resp BP Pulse Ox
98.8 F 70 15 130/69 93
10/18/24 03:44 10/18/24 04:00 10/18/24 03:44 10/18/24 03:44 10/18/24 03:44
CT Intake/Output/Weight
10/17/24 10/17/24 10/18/24
06:59 18:59 06:59
Intake Total 348.0 / 1012.4 593.6 / 683.6 90 / 683.6
Output Total 645 / 1145 335 / 375 40 / 375
Balance -297.0 / -132.6 258.6 / 308.6 50 / 308.6
SaO2: 93
Physical Exam
-
General: AOx3
Cardiovascular: Regular rate & rhythm
Respiratory: Clear
Incision: Clean, Dry and Intact
Extremities: Edema +1
[2024-10-18] MEDS: ROXICODONE 5 MG PO (06:21)
[2024-10-18] MEDS: TYLENOL 1000 MG PO ×3 (06:21→22:11)
--- NOTE | 2024-10-18 06:28 | PTCARENOTE ---
Pt helped to BR to void clear, yellow urine. Pt performed mouth care-brushed teeth. Pt then weighed on standing scale. Pt helped to chair. VS done. Roxicodone 5 mg po and Tylenol-scheduled given. Pt c/o moderate R lateral CP.
--- NOTE | 2024-10-18 07:52 | PTCARENOTE ---
Patient received from timber buyer resting oob in chair, AAO x 3, states pain controlled at this time. NSR via cm, SaO2 @ 92% on RA. RIJ Cordis w/kvo infusing. Epicardial V-wire present, insulated to chest wall. R lateral chest tube to pleurevac, no
leaks or crepitus noted on -20cm suction. All procedural sites stable. Patient and spouse updated to plan of care for the day, in agreement. See work list for full assessment and interventions performed.
[2024-10-18] MEDS: PROTONIX 40 MG PO (08:27)
[2024-10-18] MEDS: LOW STRENGTH ASPIRIN 81 MG PO (08:27)
[2024-10-18] MEDS: BACTROBAN 2% OINTMENT 1 APPLIC NASAL (08:27)
[2024-10-18] MEDS: PACERONE 200 MG PO ×3 (08:27→22:09)
[2024-10-18] MEDS: LOPRESSOR 12.5 MG PO ×2 (08:27→20:02)
[2024-10-18] MEDS: MAGNESIUM OXIDE 500 MG PO ×2 (08:27→20:03)
[2024-10-18] MEDS: NEURONTIN 100 MG PO ×3 (08:28→22:11)
[2024-10-18] MEDS: SENOKOT-S 1 TABLET PO ×2 (08:28→20:03)
[2024-10-18] MEDS: KCL 10 MEQ PO (10:01)
[2024-10-18] MEDS: LASIX 20 MG IV (10:02)
[2024-10-18] MEDS: NSS 500 IV (11:24)
--- NOTE | 2024-10-18 12:06 | PTCARENOTE ---
R lateral chest tube d/c'd as ordered, patient tolerated well. VS obtained, assessment stable, SaO2 97% on RA. Patient assisted back oob to chair, ordering lunch.
[2024-10-18] MEDS: FERRLECIT 110 MG IV (14:02)
--- NOTE | 2024-10-18 16:20 | PTCARENOTE ---
VS obtained, assessment stable. Patient remains oob in chair, at bedside. States pain better controlled w/chest tube removal.
[2024-10-18] MEDS: BACTROBAN 2% OINTMENT 2 APPLIC NASAL (20:02)
--- NOTE | 2024-10-18 23:07 | PTCARENOTE ---
Assumed care of patient 1899. Patient Alert and Oriented X 3, Follows all commands, PERRLA. VSS. Good strength bilateral. NSR on monitor, BP stable, 121/70, Pulses palpitatable, no edema. PIV flushed, blood return noted. Cordis dressing
reinforced. Lungs clear bilateral, SI X 10 2500cc, good effort. Surgical wounds C/D/I, denies pain, ambulates, voids clear yellow urine without issue. Bowel sounds present due to have bowel movement. at bedside. see assessment for more
details.
[2024-10-19] VITALS (7 sets, daily range): BP systolic 112–140; BP diastolic 73–89; PULSE 68; O2SAT 97–98; BMI 25.3
--- NOTE | 2024-10-19 03:07 | PTCARENOTE ---
Patient resting comfortably. denies pain. VSS, labs drawn.
[2024-10-19 03:25] LABS: Hematocrit 35.7 % (39.0-52.0); Hemoglobin 12.2 g/dL (13.0-18.0); Mean Corp Hgb Conc. 34.2 g/dL (33.0-37.0); Mean Corpuscular Volume 90.8 fL (80.0-94.0); Mean Platelet Volume 10.9 fL (7.4-10.4); Platelet Count 131 10^3/uL (130-400); Red Blood Cell Count 3.93 10^6/uL (4.70-6.10); Red Cell Dist. Width 13.5 % (11.5-14.5); White Blood Cell Count 7.9 10^3/uL (4.8-10.8)
[2024-10-19 03:42] LABS: Blood Urea Nitrogen 31 mg/dl (9-20); Calcium 8.6 mg/dl (8.4-10.2); Carbon Dioxide 30 mmol/L (22-30); Chloride 103 mmol/L (98-107); Estimated Creatinine Clearance 99 ml/min; Glucose 113 mg/dl (70-99); Magnesium 2.2 mg/dl (1.6-2.3); Potassium 4.3 mmol/L (3.5-5.1); Sodium 136 mmol/L (135-145); eGFR > 60.00
--- NOTE | 2024-10-19 04:17 | W.PN.CT ---
Today's Communication / Plan
-
-pod #2
-no issues overnight
-continue current care
-current meds (ASA, Amio, Lopressor, Protonix)
-encourage IS, OOB
-TTE today
-discharge planning
Assessment / Plan
-
- s/p Right mini thoracotomy with Radical mitral valve repair; Left atrial appendage exclusion [35 mm device] by Dr. Viveros on 10/16/24, pod #3
- Intraop ILENE: LVEF preop 60% with no significant wma. However, his cardiac index after insertion of the [place] was approximately 1.2. After surgery, his EF remained the same at 60% with no new regional wma. There was no residual mitral valve
insufficiency, there was normal excursion of both his anterior and posterior leaflets, the mean gradient across the valve was 1 mmHg, there was no systolic anterior motion of the leaflets. His left atrial appendage was adequately clipped. His
cardiac index had improved to 1.8-1.9 without inotropic support.
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
- Migraines
- Skin cancer
- Hypertension
- Vertigo
- Chronic diastolic heart failure with volume overload, cardiac index during surgery 1.2 before valve repair and improved significant to 1.9 after valve repair without inotropic support
- Acute postop blood loss anemia - stable, no transfusion
- Acute postop atelectasis
- Acute postop hypovolemia with subsequent hypervolemia
- Suspected acute postop pericarditis /+rub
Subjective
Procedure
s/p Right mini thoracotomy with Radical mitral valve repair; Left atrial appendage exclusion [35 mm device] by Dr. Viveros on 10/16/24
-
Date of Service: October 19, 2024
Objective Data
-
Lab Results
10/19/24 02:44
10/19/24 02:44
PT 16.8 Sec (11.4-14.6) H 10/16/24 11:01
INR 1.34 10/16/24 11:01
APTT 29.3 Sec (23.4-35.0) 10/16/24 11:01
Vital Signs
Vital Signs
Temp Pulse Resp BP Pulse Ox
97.7 F 66 17 113/73 97
10/19/24 02:46 10/19/24 03:00 10/19/24 02:46 10/19/24 02:46 10/19/24 02:46
CT Intake/Output/Weight
10/18/24 10/18/24 10/19/24
06:59 18:59 06:59
Intake Total 110 / 703.6 700 / 780 80 / 780
Output Total 110 / 445 270 / 270 0 / 270
Balance 0 / 258.6 430 / 510 80 / 510
SaO2: 97
Physical Exam
-
General: AOx3
Cardiovascular: Regular rate & rhythm
Respiratory: Clear
Incision: Clean, Dry and Intact
Extremities: No Edema
[2024-10-19] MEDS: TYLENOL 1000 MG PO (05:34)
--- NOTE | 2024-10-19 06:12 | PTCARENOTE ---
patient alert and oriented OOB ambuted in [place], voiding clear yellow urine, VVS , remains in NSR, denies Pain at this time. Xrays completed
[2024-10-19] MEDS: SENOKOT-S 1 TABLET PO (08:22)
[2024-10-19] MEDS: PROTONIX 40 MG PO (08:22)
[2024-10-19] MEDS: MAGNESIUM OXIDE 500 MG PO (08:22)
[2024-10-19] MEDS: NSS IV (08:22)
[2024-10-19] MEDS: PACERONE 200 MG PO (08:22)
[2024-10-19] MEDS: NEURONTIN 100 MG PO (08:22)
[2024-10-19] MEDS: BACTROBAN 2% OINTMENT 1 APPLIC NASAL (08:22)
[2024-10-19] MEDS: LOPRESSOR 12.5 MG PO (08:22)
[2024-10-19] MEDS: LOW STRENGTH ASPIRIN 81 MG PO (08:22)
--- NOTE | 2024-10-19 08:45 | PTCARENOTE ---
Assumed care of patient at 0700. Pt is awake, alert, and oriented. No complaints of pain at this time. Pt remains SR with HR 73. BP 112/77 MAP 89. Epicardial V wire insulated. Pulse oximetry 97% on room air. Pt achieving 2000 with IS, continued use
encouraged. Pt tolerating PO diet. Voiding without issue in bathroom. Right lateral incisions approximated and LILLIAN. Right groin incision approximated and LILLIAN. Right IJ cordis in place with KVO. Pt currently OOB in chair with at bedside.
--- NOTE | 2024-10-19 10:04 | W.DCSUMMARY ---
Discharge Summary
Discharge Data
Date of Admission: 10/16/24
Date of Discharge: 10/19/24
-
Pending Results: No
Hospital Course
Primary care physician: Karen Jackson
Outpatient wire cutter: Rebel Monet
Inpatient consultants: [facility] cardiology, pulmonary planning official
Procedures:
1. Mitral valve repair, left atrial appendage clip
Primary Diagnosis:
1. Myxomatous mitral valve degeneration, severe insufficiency and torn cord
Secondary Diagnoses:
1. Migraine cephalgia
3. Skin cancer
4. Hypertension
5. Vertigo
6. Chronic diastolic heart failure with pre-operative volume overload
HPI: 64-year-old male was electively admitted on 10/16/2024 for mitral valve repair.
Hospital course: Patient underwent right mini thoracotomy for radical mitral valve repair (2 pairs of CV 4 Thatcher-Nima cords placed to P2 and P3, 38 mm band annuloplasty), left atrial appendage exclusion, [address] Zeke Viveros. Patient
received no intraoperative blood products and returned to CVICU on Levophed, Cardene, Precedex, and insulin. Patient was extubated around 1400 on the day of surgery. Patient received a total of 750 cc of lactated Ringer's and plus D lines on
postoperative day #1. Insulin drip was discontinued and patient was downgraded to telemetry status. On postoperative day #2, patient was diuresed with 20 mg of IV Lasix chest x-ray removed. On postoperative day #3, predischarge TTE reported an EF
of 55 to 60% with mitral valve gradient 7/3 mmHg. Patient ambulated in halls and completed stairs with cardiac rehab. Hemoglobin was 12.2 and a creatinine 0.81 on day of discharge. Plan discharge home today with follow-up from transitional nurse
team.
Home medication changes:
Excedrin to aspirin 81 mg daily
Discharge Plan
-
Patient Disposition: Home (Routine Discharge)
Discharge Diagnosis/Procedures: Mitral valve repair, left atrial appendage clip
Condition: Good
Diet: Low Cholesterol and Low Sodium
Activity: No strenuous activity
Driving Restrictions: Not until seen by your Dr
Bathing Restrictions: OK to Shower
Other Services: Cardiac Rehab
Specialty Instructions: Weigh Daily- Call MD for wt gain/loss 3 lbs overnight/5 lbs in 1 week
Referrals:
CT Transitional Care Nurse [Outside] (The Cardiothoracic Transitional Care Nurse will call you to set up a visit in 1-2 days.)
[facility]. Cardiac Rehab [Outside] - 11/20/24 9:30 am
(Cardiac Rehab Orientation appointment is on 11/20/24 at 9:30 am
The Cardiac Rehab gym is located on the first floor of the [facility].)
Barbara Paez PA-C [Specified Professional Personl] - 11/24/24 9:40 am
Karen Jackson MD [Active] -
Zeke Viveros MD [Active] - 11/16/24 2:45 pm
Prescriptions:
New
acetaminophen 325 mg Tablet
650 mg PO Q4HPRN PRN (Reason: mild pain,headache,temp >101F ) Qty: 0 0RF
aspirin 81 mg Tablet,Chewable
81 mg PO DAILY Qty: 0 0RF
metoprolol succinate [Toprol XL] 25 mg tablet extended release 24 hr
25 mg PO DAILY Qty: 30 2RF
gabapentin 100 mg Capsule
100 mg PO TID Qty: 30 0RF
oxycodone 5 mg Tablet
5 mg PO Q4HPRN PRN (Reason: severe pain) Qty: 10 0RF
cyclobenzaprine 10 mg Tablet
5 mg PO Q8HPRN PRN (Reason: muscle spasm) Qty: 20 0RF
Continued
multivitamin Tablet
1 tab PO DAILY
cetirizine [Zyrtec] 10 mg Tablet
10 mg PO DAILY Qty: 0 0RF
Discontinued
Excedrin Migraine 250-250-65 mg Tablet
1 - 2 tab PO PRN PRN (Reason: Migraine, Headache)
Patient Comments:
Months ago
Discharge Orders:
Discharge Patient (As Directed); Ordered 10/19/24
Ordered By: Suzanne Gustafson
Care Plan Goals
Care Plan Goals:
Problem: Readiness for enhanced knowledge related to diagnosis and treatment plan
Goal: Understand your diagnosis and treatment plan needs, including medications if applicable.
Instructions: Know your diagnosis, underlying causes and treatment plan options, including medications if applicable. Consult with your health care team to learn about your diagnosis and treatment plan, including medications if applicable.
Discharge Date and Time
Print Language: PORTUGUESE
--- NOTE | 2024-10-19 11:30 | PTCARENOTE ---
Echo done at bedside. Cordis d/c'd, V wire cut by CT ALBA, Suzanne.
--- NOTE | 2024-10-19 11:47 | CM ---
dc plans remain home with when medically stable. he is agreeable to a f/u visit from the ct transitional care nurses after dc.
--- NOTE | 2024-10-19 12:20 | W.PN.CARDCBS ---
Today's Communication / Plan
-
Stable cardiology status for discharge
Impression / Plan
-
Primary Picture Enlarger: Dr. Monet
Assessment:
Severe MR with flail cord and prolapse of posterior leaflet at P2 into P3 s/p radical MV repair, REJI clip 10/16/24
Nonobstructive CAD by cath 09/23/24
History of migraines
Post op hypoglycemia, improved
ECHO 07/10/24: EF 61%, stage II diastolic dysfunction, mildly dilated RA, MAC, severe MR with systolic flow reversal in pulmonary veins with MR present, bileaflet mitral valve prolapse with likely torn cord, mild TR
Plan:
Stable cardiology status for discharge
Discussed with CT PA
Follow-up arranged
Progress Note - Picture Enlarger
Subjective
Date of Service: October 19, 2024
No complaints
Objective
Labs:
10/19/24 02:44
10/19/24 02:44
Labs
Hgb 12.2 g/dL (13.0-18.0) L 10/19/24 02:44
Hct 35.7 % (39.0-52.0) L 10/19/24 02:44
Plt Count 131 10^3/uL (130-400) 10/19/24 02:44
PT 16.8 Sec (11.4-14.6) H 10/16/24 11:01
INR 1.34 10/16/24 11:01
APTT 29.3 Sec (23.4-35.0) 10/16/24 11:01
Sodium 136 mmol/L (135-145) 10/19/24 02:44
Potassium 4.3 mmol/L (3.5-5.1) 10/19/24 02:44
BUN 31 mg/dl (9-20) H 10/19/24 02:44
Creatinine 0.8 mg/dL (0.7-1.3) 10/19/24 02:44
Glucose 113 mg/dl (70-99) H 10/19/24 02:44
Vital Signs and I&O:
Vital Signs
Temp Pulse Resp BP Pulse Ox
98.4 F 67 18 112/77 97
10/19/24 08:00 10/19/24 10:00 10/19/24 08:00 10/19/24 08:21 10/19/24 09:31
Vital Signs
Temp Pulse Resp BP Pulse Ox
98.4 F 67 18 112/77 97
10/19/24 08:00 10/19/24 10:00 10/19/24 08:00 10/19/24 08:21 10/19/24 09:31
Intake & Output
10/17/24 10/18/24 10/19/24 10/20/24
06:59 06:59 06:59 06:59
Intake Total 1002.0 / 1012.4 703.6 / 703.6 910 / 910
Output Total 1135 / 1145 445 / 445 270 / 270
Balance -133.0 / -132.6 258.6 / 258.6 640 / 640
Physical Exam
Physical Exam
General: Well developed, well nourished in NAD.
Neck: Supple, no JVD, HJR, carotids +2 B/L, no bruits bilaterally.
Heart: Non displaced PMI, RRR, no murmurs, No S3, S4, no rubs.
Lungs: Scattered rhonchi
Sternal dressings noted
Extremities: No clubbing, cyanosis or edema bilaterally.
Neuro: Grossly nonfocal, awake, alert and oriented x3.
--- NOTE | 2024-10-19 14:25 | PTCARENOTE ---
Discharge order received. Reviewed discharge instructions with pt and , questions addressed. Peripheral IV and tele monitor removed. Pt escorted out via wheelchair by volunteer.
== END 2024-10-19 14:33 | disposition home or self-care (01) | DRG 219 ==
LOC: CVICU 04:57
PROVIDERS: Anesthesiology; Clinical Nurse Specialist Acute Care; ADMITTING PHYSICIAN Thoracic Surgery (Cardiothoracic Vascular Surgery); CONSULT PHYSICIAN Internal Medicine Cardiovascular Disease; CONSULT PHYSICIAN Internal Medicine Critical Care Medicine; FAMILY PHYSICIAN Family Medicine
PROC: 5A1221Z Performance of Cardiac Output, Continuous (ICD-10-PCS; 2024-10-16)
PROC: B24BZZ4 Ultrasonography of Heart with Aorta, Transesophageal (ICD-10-PCS; 2024-10-16)
PROC: 02UG08Z Supplement Mitral Valve with Zooplastic Tissue, Open Approach (ICD-10-PCS; 2024-10-16)
PROC: 02L70CK Occlusion of Left Atrial Appendage with Extraluminal Device, Open Approach (ICD-10-PCS; 2024-10-16)
PROC: 02U90JZ Supplement Chordae Tendineae with Synthetic Substitute, Open Approach (ICD-10-PCS; 2024-10-16)
DX: I34.0 Nonrheumatic mitral (valve) insufficiency (principal); I51.1 Rupture of chordae tendineae, not elsewhere classified; I50.32 Chronic diastolic (congestive) heart failure; D62 Acute posthemorrhagic anemia; J98.11 Atelectasis; I30.8 Other forms of acute pericarditis; E86.1 Hypovolemia; E87.70 Fluid overload, unspecified; R00.1 Bradycardia, unspecified; E16.1 Other hypoglycemia; G43.909 Migraine, unspecified, not intractable, without status migrainosus; I11.0 Hypertensive heart disease with heart failure; I34.1 Nonrheumatic mitral (valve) prolapse; I25.10 Atherosclerotic heart disease of native coronary artery without angina pectoris
CPT/HCPCS: 93308; 36415; 71045; 80048; 80053; 81003; 81015; 82248; 82330; 82565; 82805; 82810; 82947; 82962; 83036; 83735; 84132; 84302; 84520; 85014; 85018; 85025; 85027; 85049; 85610; 85730; 86850; 86900; 86901; 86920; 87070; 93005; 93312; 93320; 93321; 93325; 93880; 94002; J2916

== ENCOUNTER 2024-11-20 13:55 | Outpatient (RCR) | payer OTHER, SELFPAY | END 2024-11-20 23:59 | disposition home or self-care (01) | LOC: CRHB 13:55 | PROVIDERS: ATTENDING PHYSICIAN Internal Medicine Cardiovascular Disease | DX: Z95.4 Presence of other heart-valve replacement (principal) | CPT/HCPCS: 93798 ==

== ENCOUNTER → 2025-04-15 08:11 | Outpatient (REF) | payer OTHER, SELFPAY | LOC: RCS 08:11 | PROVIDERS: ATTENDING PHYSICIAN Internal Medicine Cardiovascular Disease; FAMILY PHYSICIAN Family Medicine | DX: Z98.890 Other specified postprocedural states (principal) | CPT/HCPCS: 93306 ==